=== PATIENT | female | born 1960 | race Caucasian/White ===

== ENCOUNTER 2019-06-23 09:48 | Inpatient (IN) | payer OTHER ==
[~2019-06-23] VITALS: Ht 162.6 cm; Wt 74.4 kg
--- NOTE | ~2019-06-23 | CON ---
[address] [address] CONSULTATION Name: SOLANGEBREANNE Kayleigh Room: [address] IN [facility]#: [id number] Admission: 06/23/19 Attend Phys: Lan Lopez Discharge: Date of : 60 Report #: [id number] THIS REPORT FOR: //name// cc: Araceli Williamson Tammy RNP ~ THIS REPORT FOR: //name// CC: Lan Gongora DATE OF SERVICE: 06/23/2019 HISTORY OF PRESENT ILLNESS: This is a 58-year-old female patient who was evaluated by me for a stroke. I talked to Emergency Room physician who admitted this patient. I talked to the nurses looking after this patient. It looks like the patient had weakness, but the patient came to the hospital, way outside any window for any intervention. She said she was unable to hold anything with the left hand. She denies much stress at the moment, but she is on multiple medications. REVIEW OF SYSTEMS: Negative for many vascular risk factors. She says she is not a diabetic and she is healthy. She never had any stroke before. Rest of the 14-point review of system from her looks mostly unremarkable. She does have history of claustrophobia and looks like has a history of anxiety. PAST MEDICAL HISTORY: Negative for stroke. FAMILY HISTORY: Negative for early age stroke. SOCIAL HISTORY: She indicates she does not smoke. PHYSICAL EXAMINATION: Indicate that she is alert, responsive, able to follow simple and complex command. Cranial nerve examination does indicate the possibility of facial palsy on the left side. She said she is pretty significantly weak on the left side. Her position sense appeared to be intact. There is no meningeal sign. I could not look at the fundus. She is not a known hypertensive, but the blood pressure here has been high, the last blood pressure is 168/101. LABORATORY DATA: Indicate a white count of 7.1. Sodium is trace low at 135. Her CT images were reviewed and it does appear to be showing something in the brainstem area, but artifact cannot be excluded. CT angio shows stenosis. IMPRESSION: This patient presents with symptoms, which can be consistent with a stroke. We need an MRI to confirm the diagnosis. She also has carotid stenosis and I will get that confirmed by alternate testing [place] [address] CONSULTATION Name: SOLANGEBREANNE S Room: [address] IN [facility]#: [id number] Admission: 06/23/19 Attend Phys: Lan Lopez Discharge: Date of : 60 Report #: [id number] carotid stenosis is concerned, we need to extensively look for any cause for it because it does not look like she has many vascular risk factors. First thing we will try to confirm that she has a stroke on MRI and then try to confirm she had a carotid stenosis by doing a carotid Doppler, and further workup will depend upon the outcome of these testing. More than 50 minutes of time was spent taking care of this patient today and majority of that time was spent counseling and coordinating care and I talked to multiple health career agent in that regard. Dr. Gore will follow up this patient from tomorrow morning. By: [id number] Do MD /nt
[2019-06-23 09:57] VITALS: BP 174/93
[2019-06-23] MEDS ORDERED: DIAZEPAM 2MG TAB2 MG PO (10:13)
[2019-06-23] MEDS ORDERED: PROTONIX40 M1 PO (10:13)
[2019-06-23] MEDS ORDERED: CYMBALTA60 MG PO (10:14)
[2019-06-23 10:45] LABS: ABSOLUTE BASOPHILS 0.1 thou/uL (0.0-0.2); ABSOLUTE LYMPHOCYTES 1.5 thou/uL (0.8-5.3); ABSOLUTE MONOCYTES 0.7 thou/uL (0.0-1.2); ABSOLUTE NEUTROPHILS 4.8 thou/uL (1.6-8.1); BASOPHILS 1.3 %; EOSINOPHILS 0.5 %; HEMATOCRIT 39.4 % (37.0-47.0); HEMOGLOBIN 13.4 gm/dL (12.0-15.0); LYMPHOCYTES 21.2 %; MCH 32.7 pg (26.0-34.0); MCHC 34.1 g/dL (28.0-37.0); MCV 95.9 fL (80.0-100.0); MONOCYTES 9.5 %; MPV 7.3 fl. (7.2-11.1); NUCLEATED RBCS 0 /100WBC; PLATELET COUNT* 359 thou/uL (150-400); POLYS 67.5 %; RBC 4.11 mil/uL (4.20-5.00); RDW-CV 13.8 % (10.5-14.5); WBC 7.1 thou/uL (4.0-11.0)
[2019-06-23 10:53] LABS: PROTIME 10.5 Seconds (9.20-11.50)
[2019-06-23 10:55] LABS: CALCIUM 9.4 mg/dL (8.5-10.1); CREATININE 0.7 mg/dL (0.6-1.3); POTASSIUM 4.1 mmol/L (3.5-5.1)
[2019-06-23 11:00] LABS: ALBUMIN 4.3 g/dL (3.4-5.0); TOTAL BILIRUBIN 0.7 mg/dL (<0.1-1.0); TOTAL PROTEIN 8.1 g/dL (6.4-8.2)
[2019-06-23 13:35] VITALS: BP 178/115
[2019-06-23 14:03] VITALS: BP 169/111
[2019-06-23] MEDS ORDERED: FLEXERIL PO (14:30)
[2019-06-23] MEDS ORDERED: PROTONIX40 M2 PO (14:31)
[2019-06-23 16:00] VITALS: BP 168/101
--- NOTE | 2019-06-23 16:30 | EKG ---
[place] [address] ELECTROCARDIOGRAM REPORT Name: BREANNE NARVAEZ Room: [address] IN .R.#: [id number] Admission: 06/23/19 Attend Phys: Lan grey Sa Discharge: Date of : 60 Date of Service: 06/23/19 1130 Report #: [id number] THIS REPORT FOR: //name// [facility] ED Test Date: 2019-06-23 Test Time: 11:30:54 Pat Name: BREANNE NARVAEZ Department: Room: [facility] Gender: F Delivery Route Driver: : 1960 Requested By: Kyle Cantu Order Number: [id number] MD: Gregorio Garcia Measurements Intervals [place] Rate: 97 P: 67 GA: 141 QRS: 23 QRSD: 77 T: 49 QT: 359 QTc: 456 Interpretive Statements Sinus rhythm No previous ECG available for comparison Electronically Signed On 06-23-2019 16:29:17 CDT by Gregorio Garcia [email or web address] <ELECTRONICALLY SIGNED> By: Gregorio Garcia MD, FAC 06/23/19 1629 1130 1130 Gregorio Garcia MD, [facility] /EPI
--- NOTE | 2019-06-23 16:59 | 2DMMODE ---
[place] [address] 2 D/M-MODE ECHOCARDIOGRAM Name: BREANNE NARVAEZ Room: [address] IN [facility]#: [id number] Admission: 06/23/19 Attend Phys: Lan grey Sa Discharge: Date of : 60 Date of Service: 06/23/19 1658 Report #: [id number] THIS REPORT FOR: cc: Araceli Williamson Tammy RNP Liston, Michael J. MD [facility] ~ APPROVED REPORT Study performed: 06/23/2019 15:48:01 EXAM: Comprehensive 2D, Doppler, and color-flow Echocardiogram Patient Location: In-Patient Room #: 002 Status: routine BSA: 1.80 HR: 90 bpm BP: 168/101 mmHg Rhythm: NSR Other Information Study Quality: Good Indications CVA/TIA Echo Enhancing Agent Indication: Rule out Shunt Agent(s) / Amount(s) Used: Agitated Saline 10 cc 2D Dimensions IVSd: 8.50 (7-11mm) LVOT Diam: 21.25 (18-24mm) LVDd: 45.26 mm PWd: 8.50 (7-11mm) Ascending Ao: 31.76 (22-36mm) LVDs: 29.61 (25-40mm) Aortic Root: 32.64 mm Volumes Left Atrial Volume (Systole) LA ESV Index: 20.10 mL/m2 Aortic Valve AoV Peak Jorge.: 1.41 m/s AO Peak Gr.: 7.97 mmHg LVOT Max P.43 mmHg AO Mean Gr.: 3.89 mmHg LVOT Mean P.03 [place] [address] 2 D/M-MODE ECHOCARDIOGRAM Name: BREANNE NARVAEZ Room: [address]#: [id number] Admission: 06/23/19 Attend Phys: Lan grey Sa Discharge: Date of : 60 Date of Service: 06/23/19 1658 Report #: [id number] LVOT Max V: 1.27 m/s AO V2 VTI: 25.27 cm LVOT Mean V: 0.79 m/s MICHAEL (VTI): 3.50 cm2 LVOT V1 VTI: 24.95 cm Mitral Valve E/A Ratio: 0.79 MV Decel. Time: 221.30 ms MV E Max Jorge.: 0.78 m/s MV PHT: 64.18 ms MVA (PHT): 3.43 cm2 TDI E/Lateral E': 8.67 E/Medial E': 7.80 Medial E' Jorge.: 0.10 m/s Lateral E' Jorge.: 0.09 m/s Pulmonary Valve PV Peak Jorge.: 1.04 m/s PV Peak Gr.: 4.34 mmHg Left Ventricle The left ventricle is normal size. There is normal LV segmental wall motion. There is normal left ventricular wall thickness. Left ventricular systolic function is normal. LVEF is 65-70%. Grade I - abnormal relaxation pattern. Right Ventricle The right ventricle is normal size. The right ventricular systolic function is normal. Atria The left atrium size is normal. The interatrial septum is intact with no evidence for an atrial septal defect. The right atrium size is normal. Aortic Valve The aortic valve is normal in structure. No aortic regurgitation is present. There is no aortic valvular stenosis. Mitral Valve The mitral valve is normal in structure. Trace mitral regurgitation. No evidence of mitral valve stenosis. Tricuspid Valve The tricuspid valve is normal in structure. Unable to assess PA pressure. [place] [address] 2 D/M-MODE ECHOCARDIOGRAM Name: BREANNE NARVAEZ Room: [address] IN .R.#: [id number] Admission: 06/23/19 Attend Phys: Lan grey Sa Discharge: Date of : 60 Date of Service: 06/23/19 1658 Report #: [id number] Pulmonic Valve The pulmonary valve is normal in structure. There is no pulmonic valvular regurgitation. Great Vessels The aortic root is normal in size. IVC is normal in size and collapses >50% with inspiration. Pericardium There is no pericardial effusion. <Conclusion> The left ventricle is normal size. There is normal left ventricular wall thickness. Left ventricular systolic function is normal. LVEF is 65-70%. Grade I - abnormal relaxation pattern. The interatrial septum is intact with no evidence for an atrial septal defect. Trace mitral regurgitation. Trace tricuspid regurgitation. IVC is normal in size and collapses >50% with inspiration. <ELECTRONICALLY SIGNED> By: Gregorio Garcia MD, FACC 06/23/19 1658 1658 57 Gregorio Garcia MD, FACC /INF
--- NOTE | 2019-06-23 17:03 | NUR ---
RECEIVED REPORT FROM ED AND ASSUMED CARE OF PT @ 7252.PT IS A/O X4 BUT ANXIOUS,BP ELEVATED-PRN MEDICAITONS GIVEN.NIH COMPLETED WITH SCORE OF 2 FOR DRIFT IN LEFT ARM AND LEG.ECHO COMPLETED.BEDSIDE SWALLOW COMPLETED AND HEART HEALTHY DIET ORDERED.FALL PRECAUTIONS AND CALL LIGHT IN PLACE.WILL CONTINUE TO MONITOR FOR DURATION OF SHIFT.
[2019-06-23 20:00] VITALS: BP 135/81
[2019-06-24 00:07] VITALS: BP 147/93
[2019-06-24 02:07] LABS: GLYCOHEMOGLOBIN (HGB A1C) 4.9 % (4.8-5.6)
[2019-06-24 04:36] VITALS: BP 157/83
[2019-06-24 05:05] LABS: AMP/METHAMP Negative (Negative); BARBITURATES Negative (Negative); BENZODIAZEPINES POSITIVE (Negative); COCAINE Negative (Negative); METHADONE Negative (Negative); OPIATES Negative (Negative); PCP Negative (Negative); THC POSITIVE (Negative)
[2019-06-24 05:09] LABS: ALBUMIN 3.9 g/dL (3.4-5.0); ALKALINE PHOSPHATASE 48 U/L (46-116); ANION GAP 8 mmol/L (7-16); BUN 10 mg/dL (7-18); CALCIUM 9.5 mg/dL (8.5-10.1); CHLORIDE 99 mmol/L (98-107); CHOLESTEROL 216 mg/dL (<200); CO2 27 mmol/L (21-32); CREATININE 0.9 mg/dL (0.6-1.3); GLUCOSE 98 mg/dL (70-99); HDL CHOLESTEROL 127 mg/dL (>40); LDL CHOLESTEROL 73 mg/dL (<100); POTASSIUM 3.8 mmol/L (3.5-5.1); SGOT 17 U/L (15-37); SGPT 20 U/L (30-65); SODIUM 134 mmol/L (136-145); TC:HDL 1.7 Ratio (Not establshd); TOTAL BILIRUBIN 0.8 mg/dL (<0.1-1.0); TOTAL PROTEIN 7.7 g/dL (6.4-8.2); TRIGLYCERIDE 82 mg/dL (<150); VLDL 16 mg/dL (<40)
[2019-06-24 05:24] LABS: SERUM ASSESSMENT CLEAR
--- NOTE | 2019-06-24 06:47 | NUR ---
RECEIVED REPORT AND ASSUMED CARE AT 1900.VSS. CARDIAC MONITORING IN PLACE. PT DENIES COMPLAINTS OF PAIN. ASSESSMENT COMPLETED CHARTED. DISCUSSED PLAN OF CARE, VERBALIZED UNDERSTANDING. NIH THROUGH SHIFT 2. PT ENCOURAGED MULTIPLE TIME DURING SHIFT TO DRINK FLUIDS. PT STATES SHE HASN'T "DRANK ENOUGH TODAY" AND STILL DID NOT INCREASE ORAL INTAKE EVEN WITH ENCOURAGEMENT. ROUNDING COMPLETED AND ALL NEEDS MET. BED LOCKED IN LOWEST POSITION, CALL LIGHT WITHIN REACH, BED ALARM ON.
--- NOTE | 2019-06-24 12:22 | NUR ---
ICU ROUNDS: Pt admitted for CVA. PT in with Pt now. Neuro consult pending. Left sided weakness, but doing well. Rehab consult pending vs home with HH. Pt was asleep when CM called into room. Attempted to call , left VM. Following.
--- NOTE | 2019-06-24 14:53 | NUR ---
PATIENT REMAINS A&O X 4, PLEASANT AND COOPERATIVE WITH CARES. DENIES PAIN. DENIES SOA. LEFT SIDED WEAKNESS ALONG WITH SLIGHT LEFT SIDED FACIAL DROOP NOTED. NIH OF 3 THIS AFTERNOON. PATIENT WALKED WITH PT UP WITH GAIT BELT AND WALKER. PAITENT WILL FORGET THAT HER LEFT LEG IS WEAK AND WILL TRY AND STAND ON IT AND IT WILL "BUCKLE". PATIENT TRANSFERRED TO Count includes the [facility], REPORT GIVEN TO THOMPSON ONEAL. PATIENT WILL NOTIFY HER AND MAKE HIM AWARE OF HER MOVE. NO FURTHER CONCERNS AT THIS TIME.WILL CONTINUE TO MONITOR AND CARE PER PLAN OF CARE.
[2019-06-24 16:00] VITALS: BP 148/99
[2019-06-24 20:00] VITALS: BP 145/87
[2019-06-24 23:51] VITALS: BP 135/98
[2019-06-25 04:03] VITALS: BP 142/88
[2019-06-25 05:05] LABS: ALBUMIN 3.9 g/dL (3.4-5.0); CREATININE 0.8 mg/dL (0.6-1.3); PHOSPHORUS* 5.1 mg/dL (2.5-4.9); POTASSIUM 3.9 mmol/L (3.5-5.1)
[2019-06-25 05:12] LABS: CALCIUM 9.5 mg/dL (8.5-10.1)
--- NOTE | 2019-06-25 07:10 | NUR ---
CHANGE OF SHIFT, BEDSIDE REPORT GIVEN PATIENT SEEN AT BEDSIDE, IN BED RESTING ASSUMED PATIENT CARE
[2019-06-25 07:30] VITALS: BP 144/96
--- NOTE | 2019-06-25 07:54 | NUR ---
ASSUMED PATIENT CARE AT 1900. ASSESSMENT COMPLETED CHARTED. PATIENT IS NSR ON THE MONITOR. HOURLY ROUNDING IN PLACE FOR PATIENT SAFETY. CLWR.
[2019-06-25] MEDS ORDERED: CLOPIDOGREL75 MG PO (08:30)
[2019-06-25] MEDS ORDERED: HYDROCHLOROTHIA25 M1 PO (08:30)
[2019-06-25] MEDS ORDERED: ADULT LOW DOSE81 MG PO (08:30)
[2019-06-25] MEDS ORDERED: LIPITOR 40 MG T40 M1 PO (08:30)
[2019-06-25 10:05] VITALS: BP 144/96
--- NOTE | 2019-06-25 10:45 | NUR ---
DISCHARGE TO HOME ALL DISCHARGE INSTRUCTIONS GIVEN, ACKNOWLEGED, SIGNED COPIES GIVEN IV REMOVED AND PERSONAL BELONGINGS RETURNED PATIENT ASSISTED OUT VIA WC TO WAITING CAR
== END 2019-06-25 10:56 | disposition home or self-care (01) | DRG 65 ==
LOC: M.ERS 09:48 → M.TBA-ER 13:03 → M.ICU 13:03 → M.2W 06-24 14:55
PROVIDERS: Emergency Medicine; Psychiatry & Neurology Neurology; ADMIT Family Medicine
DX: I63.89 Other cerebral infarction (principal); G81.94 Hemiplegia, unspecified affecting left nondominant side; K21.9 Gastro-esophageal reflux disease without esophagitis; F41.0 Panic disorder [episodic paroxysmal anxiety]; I10 Essential (primary) hypertension; E78.5 Hyperlipidemia, unspecified; G89.29 Other chronic pain; M54.9 Dorsalgia, unspecified; M51.26 Other intervertebral disc displacement, lumbar region; M41.9 Scoliosis, unspecified; F12.90 Cannabis use, unspecified, uncomplicated; I65.29 Occlusion and stenosis of unspecified carotid artery; E03.9 Hypothyroidism, unspecified; Z90.710 Acquired absence of both cervix and uterus; Z79.899 Other long term (current) drug therapy; Z88.2 Allergy status to sulfonamides; Z72.0 Tobacco use